=== PATIENT | female | born 1955 | race Caucasian/White ===

== ENCOUNTER 2022-08-19 13:25 | Emergency (ER) | payer MEDICARE ==
[~2022-08-19] VITALS: Ht 154.9 cm; Wt 90.7 kg
[2022-08-19] MEDS ORDERED: FENTANYL 25 MCG/HR PATCH TOP SCH (14:30)
== END 2022-08-19 14:57 | disposition home or self-care (01) ==
LOC: ER 13:40
DX: R07.89 Other chest pain (principal); M84.48XS Pathological fracture, other site, sequela; Z85.3 Personal history of malignant neoplasm of breast; Z85.830 Personal history of malignant neoplasm of bone
CPT/HCPCS: 99283

== ENCOUNTER → 2022-08-23 | Outpatient (CLI) | payer MEDICARE | LOC: US 12:51 | PROVIDERS: ATTEND Otolaryngology | DX: R59.0 Localized enlarged lymph nodes (principal) | CPT/HCPCS: 76882 ==

== ENCOUNTER 2022-08-26 14:43 | Emergency (ER) | payer MEDICARE ==
[~2022-08-26] VITALS: Ht 154.9 cm; Wt 90.7 kg
[2022-08-26] MEDS ORDERED: SODIUM CHLORIDE 0.9% 1000ML 1,000 ML IV STA (14:53)
[2022-08-26] MEDS ORDERED: ONDANSETRON HCL INJ 2MG/ML 2ML 2 MG/ML VIAL IV STA (14:53)
[2022-08-26 15:32] LABS: BASOPHILS % 0.4 % (0.0-1.0); EOSINOPHILS # (AUTO) 0.3 (0.0-0.4); EOSINOPHILS % 3.1 % (0.0-6.0); HEMATOCRIT 34.8 % (34.2-44.1); HEMOGLOBIN 11.6 g/dL (12.0-16.0); LYMPHOCYTES # (AUTO) 1.8 (1.0-3.2); LYMPHOCYTES % 21.5 % (18.0-39.1); MEAN CORPUSCULAR HEMOGLOBIN 28.4 pg (28-32); MEAN CORPUSCULAR HGB CONC 33.3 g/dL (31-35); MEAN CORPUSCULAR VOLUME 85.1 fL (81-99); MONOCYTES # (AUTO) 0.8 (0.2-0.8); NEUTROPHILS # (AUTO) 5.3 (2.1-6.9); NEUTROPHILS % 64.6 % (38.7-80.0); PLATELET COUNT 302 x10e3/uL (140-360); RED BLOOD COUNT 4.09 x10e6/uL (3.6-5.1); RED CELL DISTRIBUTION WIDTH 15.1 % (11.7-14.4)
[2022-08-26 15:53] LABS: ALBUMIN 3.7 g/dL (3.5-5.0); ALBUMIN/GLOBULIN RATIO 1.1 (0.8-2.0); ANION GAP 16.4 mmol/L (8-16); CREATININE, SERUM 0.75 mg/dL (0.57-1.11); POTASSIUM 3.4 mmol/L (3.5-5.1)
[2022-08-26] MEDS ORDERED: IOPAMIDOL 370 MG/ML 100 ML INFUS..BTL INJ ONE (16:15)
[2022-08-26 16:20] LABS: CLARITY,URINE CLEAR (CLEAR); COLOR,URINE YELLOW (YELLOW); KETONES,URINE NEGATIVE (NEGATIVE); LEUKOCYTE ESTERASE ,URINE SMALL (NEGATIVE); NITRITE,URINE NEGATIVE (NEGATIVE); PROTEIN,URINE DIPSTICK NEGATIVE (NEGATIVE); URINE UROBILINOGEN 0.2 mg/dL (0.2 - 1)
[2022-08-26 16:33] LABS: BACTERIA,URINE MODERATE /HPF; EPITHELIAL CELLS,URINE FEW /LPF; RBC,URINE 0-5 /HPF (0-5); RENAL EPITHELIAL CELLS,URINE RARE
[2022-08-26] MEDS ORDERED: PROMETHAZINE HCL (IM) 25 MG/ML VIAL IM ONE (16:45)
[2022-08-26 17:54] VITALS: BP 150/81
== END 2022-08-26 17:56 | disposition home or self-care (01) ==
LOC: ER 14:50
DX: R10.32 Left lower quadrant pain (principal); K57.90 Diverticulosis of intestine, part unspecified, without perforation or abscess without bleeding; R11.2 Nausea with vomiting, unspecified; M81.0 Age-related osteoporosis without current pathological fracture; Z85.3 Personal history of malignant neoplasm of breast; Z85.830 Personal history of malignant neoplasm of bone; Z86.79 Personal history of other diseases of the circulatory system
CPT/HCPCS: 36415; 74177; 80053; 81001; 83690; 85025; 99284; J2405; J2550; J7030; Q9967

== ENCOUNTER → 2022-08-31 | Outpatient (CLI) | payer MEDICARE ==
[~2022-08-31] MED LIST: LIDOCAINE HCL 1% LOCAL INJ 20 ML VIAL ONE
== END ==
LOC: US 09:43
PROVIDERS: ATTEND Otolaryngology
DX: R59.0 Localized enlarged lymph nodes (principal)
CPT/HCPCS: 10005; 38505; 76942; 88112; 88304; 88305; J2001; 88173; 88342

== ENCOUNTER 2024-10-03 01:39 | Inpatient (IN) | payer MEDICARE ==
[~2024-10-03] VITALS: Ht 188 cm; Wt 153.3 kg
[2024-10-03] VITALS (9 sets, daily range): BP systolic 98–173; BP diastolic 52–76; PULSE 80–86; RESP 17–24; TEMP 97.3–98.3; O2SAT 95–100
[2024-10-03 02:32] LABS: BASOPHILS % 0.1 % (0.0-1.0); EOSINOPHILS % 0.2 % (0.0-6.0); HEMATOCRIT 31.7 % (34.2-44.1); HEMOGLOBIN 9.6 g/dL (12.0-16.0); LYMPHOCYTES # (AUTO) 0.6 (1.0-3.2); LYMPHOCYTES % 3.9 % (18.0-39.1); MEAN CORPUSCULAR HEMOGLOBIN 26.2 pg (28-32); MEAN CORPUSCULAR HGB CONC 30.3 g/dL (31-35); MEAN CORPUSCULAR VOLUME 86.6 fL (81-99); MONOCYTES # (AUTO) 0.9 (0.2-0.8); MONOCYTES % 6.5 % (4.4-11.3); NEUTROPHILS # (AUTO) 12.4 (2.1-6.9); NEUTROPHILS % 88.8 % (38.7-80.0); PLATELET COUNT 233 x10e3/uL (140-360); RED BLOOD COUNT 3.66 x10e6/uL (3.6-5.1); RED CELL DISTRIBUTION WIDTH 17.4 % (11.7-14.4); WHITE BLOOD COUNT 13.98 x10e3/uL (4.8-10.8)
[2024-10-03 02:40] LABS: INR 1.07; PARTIAL THROMBOPLASTIN TIME 26.2 seconds (23.8-35.5); PROTHROMBIN TIME 14.5 seconds (11.9-14.5)
[2024-10-03 02:49] LABS: ALBUMIN 2.9 g/dL (3.5-5.0); ALBUMIN/GLOBULIN RATIO 0.7 (0.8-2.0); BILIRUBIN,TOTAL 0.4 mg/dL (0.2-1.2); CALCIUM 9.5 mg/dL (8.4-10.2); CREATININE, SERUM 0.73 mg/dL (0.57-1.11); TOTAL PROTEIN 6.8 g/dL (6.5-8.1)
[2024-10-03] MEDS: CEFEPIME 2 GM in SODIUM CHLORIDE 0.9% 100 ML IV ONE (02:54)
[2024-10-03] MEDS: SODIUM CHLORIDE 0.9% 1000ML 1,000 ML IV ONE (02:54)
[2024-10-03] MEDS ORDERED: DEXAMETHASONE4 MG PO (03:04)
[2024-10-03] MEDS ORDERED: POTASSIUM CHLO20 ME1 PO (03:04)
[2024-10-03] MEDS ORDERED: NYSTATIN100000 UNI PO (03:04)
[2024-10-03] MEDS ORDERED: HYDROMORPHONE HC4 MG SL (03:04)
[2024-10-03] MEDS ORDERED: HALDOL1 MG PO (03:04)
[2024-10-03] MEDS ORDERED: ATIVAN0.5 MG PO ×2 (03:04)
[2024-10-03] MEDS ORDERED: FENTANYL1 EAC3 TD (03:04)
[2024-10-03] MEDS ORDERED: SYNTHROID88 MCG PO (03:04)
[2024-10-03] MEDS ORDERED: FUROSEMIDE20 MG PO (03:04)
[2024-10-03] MEDS ORDERED: SENNA LAXATIVE8.6 MG PO (03:04)
[2024-10-03] MEDS ORDERED: LOSARTAN POTAS100 MG PO (03:04)
[2024-10-03] MEDS ORDERED: FENTANYL1 EACH TD (03:04)
[2024-10-03] MEDS: Vancomycin IV 1 GM in SODIUM CHLORIDE 0.9% 250ML 250 ML IV ONE (04:11)
[2024-10-03 04:12] LABS: CLARITY,URINE CLEAR (CLEAR); COLOR,URINE YELLOW (YELLOW)
[2024-10-03 04:13] LABS: BILIRUBIN,URINE NEGATIVE (NEGATIVE); GLUCOSE, URINE NEGATIVE (NEGATIVE); KETONES,URINE NEGATIVE (NEGATIVE); LEUKOCYTE ESTERASE ,URINE NEGATIVE (NEGATIVE); NITRITE,URINE NEGATIVE (NEGATIVE); PH,URINE 6.5 (5 - 7); PROTEIN,URINE DIPSTICK NEGATIVE (NEGATIVE); URINE UROBILINOGEN 0.2 mg/dL (0.2 - 1)
[2024-10-03 04:38] LABS: BACTERIA,URINE FEW /HPF; EPITHELIAL CELLS,URINE RARE /LPF; WBC,URINE (MAN) 0-5 /HPF (0-5)
[2024-10-03] MEDS ORDERED: ONDANSETRON HCL INJ 2MG/ML 2ML 2 MG/ML VIAL IV PRN (05:30)
[2024-10-03] MEDS ORDERED: SODIUM CHLORIDE FLUSH 10 ML SYR INJ PRN (05:30)
[2024-10-03] MEDS ORDERED: HALOPERIDOL 1 MG TAB PO PRN (05:45)
[2024-10-03] MEDS ORDERED: SENNOSIDES 8.6 MG TAB PO PRN (05:45)
[2024-10-03] MEDS: HYDROMORPHONE HCL 2 MG TAB PO ONE (05:55)
[2024-10-03] MEDS: HYDROMORPHONE 1MG/1ML INJ IV STA (05:58)
[2024-10-03] MEDS: LEVOTHYROXINE SODIUM 88 MCG TAB PO SCH (07:06)
[2024-10-03] MEDS: FENTANYL 100 MCG/HR PATCH TD SCH (09:18)
[2024-10-03] MEDS: FUROSEMIDE 20 MG TAB PO SCH (09:19)
[2024-10-03] MEDS: LOSARTAN POTASSIUM 100 MG TAB PO SCH (09:19)
[2024-10-03] MEDS: DEXAMETHASONE 4 MG TAB PO SCH (09:19)
[2024-10-03] MEDS: NYSTATIN SUSPENSION 5 ML UDC PO SCH (09:20)
[2024-10-03] MEDS: POTASSIUM CHLORIDE 20 MEQ TAB CR PO SCH (09:20)
[2024-10-03] MEDS: LORAZEPAM 0.5 MG TAB PO SCH (09:20)
[2024-10-03] MEDS: FUROSEMIDE INJ 10 MG/ML 2 ML VIAL IV ONE (11:32)
[2024-10-03] MEDS: FENTANYL 25 MCG/HR PATCH TD SCH (11:32)
[2024-10-03] MEDS: FUROSEMIDE INJ 10 MG/ML 4 ML VIAL IV SCH (21:00)
[2024-10-04] VITALS: BP 103/65; PULSE 84; RESP 18; TEMP 97.3; O2SAT 100
[2024-10-04 04:00] VITALS: BP 113/58; PULSE 87; RESP 17; TEMP 97.4; O2SAT 98
[2024-10-04] MEDS: LORAZEPAM 0.5 MG TAB PO PRN (04:39)
[2024-10-04 06:17] LABS: BASOPHILS % 0.1 % (0.0-1.0); EOSINOPHILS # (AUTO) 0.1 (0.0-0.4); EOSINOPHILS % 0.6 % (0.0-6.0); HEMATOCRIT 34.6 % (34.2-44.1); HEMOGLOBIN 9.8 g/dL (12.0-16.0); LYMPHOCYTES # (AUTO) 0.8 (1.0-3.2); MEAN CORPUSCULAR HEMOGLOBIN 26.6 pg (28-32); MEAN CORPUSCULAR HGB CONC 28.3 g/dL (31-35); MEAN CORPUSCULAR VOLUME 93.8 fL (81-99); MONOCYTES # (AUTO) 0.9 (0.2-0.8); MONOCYTES % 7.1 % (4.4-11.3); NEUTROPHILS # (AUTO) 11.1 (2.1-6.9); NEUTROPHILS % 85.7 % (38.7-80.0); PLATELET COUNT 223 x10e3/uL (140-360); RED BLOOD COUNT 3.69 x10e6/uL (3.6-5.1); RED CELL DISTRIBUTION WIDTH 17.7 % (11.7-14.4); WHITE BLOOD COUNT 12.88 x10e3/uL (4.8-10.8)
[2024-10-04 06:38] LABS: ALBUMIN/GLOBULIN RATIO 0.8 (0.8-2.0); ANION GAP 14.9 mmol/L (8-16); BILIRUBIN,TOTAL 0.5 mg/dL (0.2-1.2); CALCIUM 9.2 mg/dL (8.4-10.2); CREATININE, SERUM 0.65 mg/dL (0.57-1.11); POTASSIUM 3.9 mmol/L (3.5-5.1); TOTAL PROTEIN 6.7 g/dL (6.5-8.1)
[2024-10-04 08:01] VITALS: BP 124/60; PULSE 91; RESP 22; TEMP 97.7; O2SAT 97
[2024-10-04] MEDS: DEXAMETHASONE SOD PHOS INJ 4 MG/ML SDV IV SCH (11:31)
[2024-10-04 12:01] VITALS: BP 109/60; PULSE 91; RESP 22; TEMP 98; O2SAT 100
[2024-10-04 15:47] VITALS: BP 107/67; PULSE 85; RESP 20; TEMP 98.3; O2SAT 96
[2024-10-04 20:00] VITALS: BP 112/59; PULSE 88; RESP 17; TEMP 97.5; O2SAT 98
[2024-10-05] VITALS (9 sets, daily range): BP systolic 114–162; BP diastolic 60–73; PULSE 64–94; RESP 18–20; TEMP 97.4–98.2; O2SAT 96–100
[2024-10-05 06:51] LABS: BASOPHILS % 0.1 % (0.0-1.0); EOSINOPHILS % 0.3 % (0.0-6.0); HEMATOCRIT 31.2 % (34.2-44.1); HEMOGLOBIN 9.8 g/dL (12.0-16.0); LYMPHOCYTES # (AUTO) 0.6 (1.0-3.2); LYMPHOCYTES % 4.7 % (18.0-39.1); MEAN CORPUSCULAR HEMOGLOBIN 26.4 pg (28-32); MEAN CORPUSCULAR HGB CONC 31.4 g/dL (31-35); MEAN CORPUSCULAR VOLUME 84.1 fL (81-99); MONOCYTES # (AUTO) 0.8 (0.2-0.8); MONOCYTES % 6.5 % (4.4-11.3); NEUTROPHILS # (AUTO) 10.4 (2.1-6.9); NEUTROPHILS % 87.7 % (38.7-80.0); PLATELET COUNT 208 x10e3/uL (140-360); RED BLOOD COUNT 3.71 x10e6/uL (3.6-5.1); RED CELL DISTRIBUTION WIDTH 17.6 % (11.7-14.4); WHITE BLOOD COUNT 11.88 x10e3/uL (4.8-10.8)
[2024-10-05 07:09] LABS: ANION GAP 14.9 mmol/L (8-16); CALCIUM 9.2 mg/dL (8.4-10.2); CREATININE, SERUM 0.59 mg/dL (0.57-1.11); POTASSIUM 3.9 mmol/L (3.5-5.1)
[2024-10-06] VITALS (8 sets, daily range): BP systolic 113–157; BP diastolic 54–75; PULSE 80–88; RESP 20–21; TEMP 97.2–97.8; O2SAT 98–100
[2024-10-06] MEDS ORDERED: HEPARIN 500 UNITS/5ML MDV INJ ONE (13:45)
[2024-10-06] MEDS: HEPARIN 500 UNITS/5ML MDV INJ ONE (14:09)
[2024-10-06] MEDS ORDERED: ONDANSETRON HCL 4 MG ORAL DISINTEGRATING TAB PO PRN (14:30)
[2024-10-07] MEDS ORDERED: AZITHROMYCIN 250 MG TAB PO SCH (10:30)
== END 2024-10-06 14:25 | disposition hospice, home (50) | DRG 180 ==
LOC: ER 01:44 → ERHOLD 05:28 → MED/SURG3 06:13
PROVIDERS: ADMIT Internal Medicine; ATTEND Internal Medicine
DX: C78.2 Secondary malignant neoplasm of pleura (principal); E43 Unspecified severe protein-calorie malnutrition; J18.9 Pneumonia, unspecified organism; J96.90 Respiratory failure, unspecified, unspecified whether with hypoxia or hypercapnia; C78.02 Secondary malignant neoplasm of left lung; C78.01 Secondary malignant neoplasm of right lung; C79.89 Secondary malignant neoplasm of other specified sites; Z68.41 Body mass index [BMI] 40.0-44.9, adult; J91.0 Malignant pleural effusion; C50.911 Malignant neoplasm of unspecified site of right female breast; Z99.81 Dependence on supplemental oxygen; Z66 Do not resuscitate; E66.9 Obesity, unspecified
CPT/HCPCS: 0223U; 36415; 71045; 71260; 74470; 76604; 80048; 80053; 81001; 83605; 84484; 85025; 85610; 85730; 87040; 87086; 87400; 99284; J0692; J1100; J1171; J1940; J7030; J7050